=== PATIENT | male | born 1990 | race Caucasian/White ===

== ENCOUNTER 2016-08-16 17:53 | Emergency (ER) | payer OTHER ==
[2016-08-16 18:33] VITALS: BP 139/74
--- NOTE | 2016-08-16 20:09 | UC ---
Lower Extremity/Ankle HPI - HPI Summary HPI Summary: landed wrong snowboarding. pain on lateral side of right knee. - History of Current Complaint Chief Complaint: UCLowerExtremity Stated Complaint: RIGHT KNEE PAIN Time Seen by Provider: 08/16/16 20:00 Hx Obtained From: Patient Onset/Duration: Sudden Onset, Lasting Days Severity Initially: Moderate Severity Currently: Mild Pain Intensity: 3 Pain Scale Used: 0-10 Numeric Aggravating Factor(s): Standing, Ambulation Alleviating Factor(s): Rest Able to Bear Weight: Yes - Risk Factors Gout Risk Factors: Negative DVT Risk Factors: Negative Septic Arthritis Risk Factor: Negative - Allergies/Home Medications Allergies/Adverse Reactions: Allergies Allergy/AdvReac Type Severity Reaction Status Date / Time Penicillins Allergy Anaphylatic Verified 08/16/16 18:33 Shock Home Medications: Home Medications Amphetamine MIXED SALT TAB* [Adderall TAB*] 10 mg PO DAILY 08/16/16 [History Confirmed 08/16/16] Amphetamine/Dextroamph ER(NF) [Adderal XR (NF)] 20 mg PO DAILY 08/16/16 [ History Confirmed 08/16/16] PMH/Surg Hx/FS Hx/Imm Hx Previously Healthy: Yes - Surgical History Surgical History: None - Family History Known Family History: Positive: Other - no fam hx ADHD Negative: Hypertension, Blood Disorder - Social History Alcohol Use: Occasionally Substance Use Type: None Smoking Status (MU): Current Some Day Smoker Type: Cigars Amount Used/How Often: 4 X PER YR. Length of Time of Smoking/Using Tobacco: 1-2 YRS Review of Systems Constitutional: Negative Skin: Negative Eyes: Negative ENT: Negative Respiratory: Negative Cardiovascular: Negative Gastrointestinal: Negative Genitourinary: Negative Motor: Negative Neurovascular: Negative Musculoskeletal: Arthralgia, Myalgia Neurological: Negative Psychological: Negative All Other Systems Reviewed And Are Negative: Yes Physical Exam Triage Information Reviewed: Yes Appearance: Well-Appearing, Well-Nourished, Pain Distress Vital Signs: Initial Vital Signs Temp 98.8 F 08/16/16 18:29 Pulse 82 08/16/16 18:29 Resp 14 08/16/16 18:29 BP 139/74 08/16/16 18:29 Pulse Ox 98 08/16/16 18:29 Vital Signs Reviewed: Yes Eye Exam: Normal Eyes: Positive: Conjunctiva Clear ENT Exam: Normal ENT: Positive: Normal ENT inspection, Pharynx normal, TMs normal Dental Exam: Normal Neck exam: Normal Neck: Positive: Supple, Nontender, No Lymphadenopathy Respiratory Exam: Normal Respiratory: Positive: Chest non-tender, Lungs clear, Normal breath sounds Cardiovascular Exam: Normal Cardiovascular: Positive: RRR, No Murmur, Pulses Normal Abdominal Exam: Normal Abdomen Description: Positive: Nontender, No Organomegaly, Soft Bowel Sounds: Positive: Present Musculoskeletal Exam: Normal Musculoskeletal: Positive: No Edema, Other: - point tender over lcl, mild laxity noted on lateral joint line with medial force Neurological Exam: Normal Neurological: Positive: Alert, Muscle Tone Normal Psychological Exam: Normal Skin Exam: Normal Lower Extremity Course/Dx - Course Course Of Treatment: hx obtained, exam performed, referral given to ORtho. - Differential Dx/Diagnosis Differential Diagnosis/HQI/PQRI: Contusion, Dislocation, Fracture (Closed), Sprain, Strain Provider Diagnoses: mild LCL sprain of right knee Discharge - Discharge Plan Condition: Stable Disposition: HOME Patient Education Materials: Knee Sprain (ED) Referrals: CHARO Shah [Primary Care Provider] - Hardik Shultz MD [Medical Doctor] - Additional Instructions: Follow up with Dr shultz for further evaluation of right knee if needed. rest, and heat before activity. use your brace for added support.
== END 2016-08-16 20:29 | disposition home or self-care (01) ==
LOC: UCCORT 17:53
DX: S83.421A Sprain of lateral collateral ligament of right knee, initial encounter (principal); X58.XXXA Exposure to other specified factors, initial encounter; Y93.23 Activity, snow (alpine) (downhill) skiing, snowboarding, sledding, tobogganing and snow tubing; Y92.9 Unspecified place or not applicable; Z88.0 Allergy status to penicillin; Z72.0 Tobacco use
CPT/HCPCS: 99211; G0463

== ENCOUNTER 2016-09-01 12:02 | Emergency (ER) | payer OTHER ==
[2016-09-01 12:31] VITALS: BP 137/70
--- NOTE | 2016-09-01 13:14 | UC ---
HPI Febrile Illness - HPI Summary HPI Summary: ST, headache, chills, bad body aches, ST for 3d. Chills, fevers. Exposed to a person who was diagnosed with "flu-like illness and acute bronchitis". No vomiting or diarrhea. Dry cough. - History of Current Complaint Chief Complaint: UCRespiratory Time Seen by Provider: 09/01/16 12:51 Hx Obtained From: Patient Onset/Duration: Started Days Ago - 3 Timing: Constant Initial Severity: Mild Current Severity: Moderate Aggravating Factors: Nothing Alleviating Factors: Nothing Associated Signs and Symptoms: Arthralgia, Chills, Cough, Headache, Myalgia, Sore Throat, Weakness - Risk Factors Pseudomonas Risk Factors: Negative Serious Bacterial Infection Risk Factors: Negative - Allergy/Home Medications Allergies/Adverse Reactions: Allergies Allergy/AdvReac Type Severity Reaction Status Date / Time Penicillins Allergy Anaphylatic Verified 09/01/16 12:31 Shock PMH/Surg Hx/FS Hx/Imm Hx Previously Healthy: Yes Endocrine/Hematology History: Denies: Hx Diabetes Cardiovascular History: Denies: Hx Hypertension, Hx Pacemaker/ICD Respiratory History: Denies: Hx Asthma Sensory History: Denies: Hx Hearing Aid Psychiatric History: Denies: Hx Panic Disorder Infectious Disease History: No Infectious Disease History: Denies: Hx Clostridium Difficile, Hx Hepatitis, Hx Human Immunodeficiency Virus (HIV), Hx of Known/Suspected MRSA, Hx Shingles, Hx Tuberculosis, Hx Known/ Suspected VRE, Hx Known/Suspected VRSA, History Other Infectious Disease, Traveled Outside the [place] in Last 30 Days - Family History Known Family History: Positive: Other - no fam hx ADHD Negative: Hypertension, Blood Disorder - Social History 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 Length of Time of Smoking/Using Tobacco: 1-2 YRS Review of Systems Constitutional: Negative Skin: Negative Eyes: Negative ENT: Sore Throat, Nasal Discharge Respiratory: Cough Cardiovascular: Negative Gastrointestinal: Negative Genitourinary: Negative Motor: Negative Neurovascular: Negative Musculoskeletal: Negative Neurological: Negative Psychological: Negative All Other Systems Reviewed And Are Negative: Yes Physical Exam Triage Information Reviewed: Yes Appearance: Well-Appearing, No Pain Distress, Well-Nourished Vital Signs: Initial Vital Signs Temp 101.8 F 09/01/16 12:25 Pulse 95 09/01/16 12:25 Resp 16 09/01/16 12:25 BP 137/70 09/01/16 12:25 Pulse Ox 98 09/01/16 12:25 Vital Signs Reviewed: Yes Eye Exam: Normal ENT Exam: Normal ENT: Positive: Hearing grossly normal, Pharyngeal erythema - moderate, Nasal drainage, TMs normal, Tonsillar swelling. Negative: Tonsillar exudate, Trismus , Muffled/hoarse voice Neck exam: Normal Neck: Positive: Supple Respiratory Exam: Normal Respiratory: Positive: Lungs clear Cardiovascular Exam: Normal Musculoskeletal Exam: Normal Neurological Exam: Normal Neurological: Positive: Alert, Muscle Tone Normal Psychological Exam: Normal Skin Exam: Normal Diagnostics - Laboratory Diagnostic Studies Completed/Ordered: influenza neg, strep neg Course/Dx - Diagnoses Clinic Provider Diagnoses: viral syndrome Discharge - Discharge Plan Condition: Stable Disposition: HOME Prescriptions: Guaifenesin-Codeine [Cheratussin AC] 1 - 2 teasp PO Q6HR PRN #120 ml MDD 30ml PRN Reason: cough, sore throat Oseltamivir Phosphate [Tamiflu] 75 mg PO BID #10 cap Patient Education Materials: Viral Syndrome (ED) Forms: *Work Release
== END 2016-09-01 13:16 | disposition home or self-care (01) ==
LOC: UCCORT 12:02
DX: B34.9 Viral infection, unspecified (principal); Z88.0 Allergy status to penicillin; Z72.0 Tobacco use
CPT/HCPCS: 87502; 87651; 99212; G0463

== ENCOUNTER 2016-09-04 07:09 | Emergency (ER) | payer OTHER ==
[2016-09-04 07:17] VITALS: BP 115/71
--- NOTE | 2016-09-04 07:40 | UC ---
Back Pain HPI - HPI Summary HPI Summary: bilateral low back pain and headache, noted worse after taking guaifenesin AC. Pt was seen here 09/01/16, given RX tamiflu and guaifenesin AC, despite strep and flu swabs neg. Pt did not take the tamiflu. Has continued to feel ill with nasal congestion, fatigue. States he feels better for a few hrs, or a day , and then feels exhausted and achey and cough continues. States he has been drinking alot of water, but with the low back pain is worried about his kidneys so came to be checked. Thought if it wasn't his kidneys that maybe it is the medicine causing those symptoms above. No fever. - History of Current Complaint Chief Complaint: UCGeneralIllness Stated Complaint: BILATERAL FLANK PAIN Time Seen by Provider: 09/04/16 07:20 Hx Obtained From: Patient Onset/Duration: Gradual Onset, Lasting Days, Still Present Timing: Constant Severity Initially: Moderate Severity Currently: Severe Pain Intensity: 9 Pain Scale Used: 0-10 Numeric Back Pain: Is Discrete @ - bilateral lumbar paraspinous Character: Aching Aggravating: Nothing Alleviating: Nothing Associated Signs And Symptoms: Negative: Fever, Numbness, Tingling, Abdominal Pain, Flank Pain - Allergies/Home Medications Allergies/Adverse Reactions: Allergies Allergy/AdvReac Type Severity Reaction Status Date / Time Penicillins Allergy Anaphylatic Verified 09/04/16 07:17 Shock PMH/Surg Hx/FS Hx/Imm Hx Previously Healthy: No - ADHD Endocrine History Of: Denies: Diabetes Cardiovascular History Of: Denies: Hypertension, Pacemaker/ICD Respiratory History Of: Denies: Asthma - Surgical History Surgical History: None - Family History Known Family History: Positive: Other - no fam hx ADHD Negative: Hypertension, Blood Disorder - Social History Alcohol Use: Occasionally Substance Use Type: None Smoking Status (MU): Current Some Day Smoker Type: Cigars Amount Used/How Often: 4 X PER YR. Length of Time of Smoking/Using Tobacco: 1-2 YRS Review of Systems Constitutional: Negative Skin: Negative Eyes: Negative ENT: Negative Respiratory: Cough Cardiovascular: Negative Gastrointestinal: Negative Genitourinary: Negative Motor: Negative Neurovascular: Negative Musculoskeletal: Negative Neurological: Negative Psychological: Negative All Other Systems Reviewed And Are Negative: Yes Physical Exam Triage Information Reviewed: Yes Appearance: Well-Nourished, Ill-Appearing, Pain Distress Vital Signs: Initial Vital Signs Temp 99.1 F 09/04/16 07:12 Pulse 80 09/04/16 07:12 Resp 16 09/04/16 07:12 BP 115/71 09/04/16 07:12 Pulse Ox 97 09/04/16 07:12 Vital Signs Reviewed: Yes Eyes: Positive: Conjunctiva Clear ENT: Positive: Pharyngeal erythema, TMs normal Neck: Positive: Supple, Nontender, No Lymphadenopathy Respiratory: Positive: Lungs clear, Normal breath sounds, No respiratory distress Cardiovascular: Positive: RRR, No Murmur, Pulses Normal, Brisk Capillary Refill Abdomen Description: Positive: Nontender, No Organomegaly, Soft, Other: - back tenderness bilat lumbar paraspinous. Negative: CVA Tenderness (R), CVA Tenderness (L) Musculoskeletal: Positive: Strength Intact, ROM Intact Neurological: Positive: Alert, Muscle Tone Normal Psychological Exam: Normal Skin Exam: Normal Back Pain Course/Dx - Differential Dx/Diagnosis Differential Diagnosis/HQI/PQRI: Strain, Sprain Provider Diagnoses: low back pain. viral syndrome Discharge - Discharge Plan Condition: Stable Disposition: HOME Patient Education Materials: Musculoskeletal Pain (ED) Referrals: Jessy Atkinson PA [Primary Care Provider] - Additional Instructions: Your urine test was normal. Dr. Shelby recommends that you stop the guafenesin AC and that you take ibuprofen 800mg three times a day with food for the next 5- 7 days. Return to urgent care if you have any new or worsening symptoms.
== END 2016-09-04 07:52 | disposition home or self-care (01) ==
LOC: UCCORT 07:09
DX: M54.5 Low back pain (principal); B34.9 Viral infection, unspecified; F17.290 Nicotine dependence, other tobacco product, uncomplicated; Z88.0 Allergy status to penicillin
CPT/HCPCS: 99211; G0463